=== PATIENT | male | born 1940 | race Caucasian/White ===

== ENCOUNTER 2020-05-19 09:19 | Day surgery (SDC) | payer MEDICARE, OTHER ==
[2020-05-17 09:42] LABS: BASOPHILS # (AUTO) 0.1 X10'3 (0-0.2); BASOPHILS % (AUTO) 0.9 % (0-1); EOSINOPHILS # (AUTO) 0.1 X10'3 (0-0.9); EOSINOPHILS % (AUTO) 0.9 % (0-6); HEMATOCRIT 39.6 % (42.0-52.0); HEMOGLOBIN 13.1 g/dl (14.0-17.9); LYMPHOCYTES # (AUTO) 0.9 X10'3 (1.1-4.8); LYMPHOCYTES % (AUTO) 11.6 % (21-51); MEAN CORPUSCULAR HEMOGLOBIN 29.4 PG (27.0-31.0); MEAN CORPUSCULAR HGB CONC 33.2 g/dL (33.0-36.5); MEAN CORPUSCULAR VOLUME 88.5 FL (78-98); MEAN PLATELET VOLUME 7.4 FL (7.4-10.4); MONOCYTES # (AUTO) 0.8 X10'3 (0-0.9); MONOCYTES % (AUTO) 10.3 % (2-12); NEUTROPHILS # (AUTO) 5.6 X10'3 (1.8-7.7); NEUTROPHILS % (AUTO) 76.3 % (42-75); PLATELET COUNT 248 X10'3 (140-440); RED BLOOD COUNT 4.47 X10'6 (4.70-6.10); RED CELL DISTRIBUTION WIDTH 16.3 % (11.5-14.5); WHITE BLOOD COUNT 7.4 X10'3 (4.5-11.0)
[2020-05-17 09:51] LABS: ALBUMIN 3.7 G/DL (3.4-5.0); ANION GAP 9 (8-16); BLOOD UREA NITROGEN 13 MG/DL (7-18); CHLORIDE 101 MMOL/L (99-107); CREATININE 0.81 MG/DL (0.60-1.10); GLUCOSE 133 MG/DL (70-104); POTASSIUM 3.9 MMOL/L (3.5-5.1); SODIUM 139 MMOL/L (135-145); TOTAL CARBON DIOXIDE 29.2 MMOL/L (24-32); eGFR > 90 ML/MIN
[~2020-05-19] VITALS: Ht 185.4 cm; Wt 91.9 kg
[2020-05-19] VITALS (13 sets, daily range): BP systolic 106–121; BP diastolic 66–90
[2020-05-19] MEDS ORDERED: atropine 0.1mg/ml 10ml syringe IV ONE (09:50)
[2020-05-19] MEDS ORDERED: MIDAZolam 1mg/ml 10ml vial IV ONE (09:50)
[2020-05-19] MEDS ORDERED: fentaNYL/PF 50MCG/1 ML 2ML syringe IV ONE (09:50)
[2020-05-19] MEDS ORDERED: FLO0.4C PO (11:09)
[2020-05-19] MEDS ORDERED: ROSU10TA2 PO (11:09)
[2020-05-19] MEDS ORDERED: AMIO200T61 PO (11:09)
[2020-05-19] MEDS ORDERED: APIX5TAB3 PO (11:09)
[2020-05-19] MEDS ORDERED: DILT120C19 PO (11:09)
--- NOTE | 2020-05-19 11:29 | NUR ---
PRE VITALS: HR [id number], RR 18, SPO2 99% ON 2LPM, ETCO2 37. POST VITALS: HR 72-76, RR 25, SPO2 996% ON 2LPM , ETCO2 30 Addendum: 05/19/20 at 1131 by Sina Child RT Amended: Links added.
[2020-05-19] MEDS ORDERED: FLU VACC QS2020-21(6MOS UP)/PF 60 MCG/0.5 ML SYRINGE IMVAC ONE (16:20)
== END 2020-05-19 12:30 | disposition home or self-care (01) ==
LOC: SSTAY O 09:19
DX: I48.0 Paroxysmal atrial fibrillation (principal)
CPT/HCPCS: 36415; 80048; 85025; 92960; J2250; J3010; 93005